=== PATIENT | male | born 1950 | race African-American/Black ===

== ENCOUNTER 2019-12-17 20:52 | Emergency (ER) | payer MEDICARE, MEDICAID ==
[~2019-12-17] VITALS: Ht 175.3 cm; Wt 59.0 kg
[2019-12-17] MEDS ORDERED: IPRATROPIUM BROMIDE (0.02%) 0.5MG/2.5ML NEB HHN STA (21:11)
[2019-12-17] MEDS ORDERED: ALBUTEROL (0.083%) 2.5MG/3ML NEB HHN STA (21:11)
[2019-12-17] MEDS ORDERED: ONDANSETRON HCL 4MG/2ML INJ IV ONE (21:45)
[2019-12-17] MEDS ORDERED: ONDANSETRON 4MG ODT PO ONE (22:00)
[2019-12-17 22:45] VITALS: BP 140/81
== END 2019-12-17 21:00 | disposition left against medical advice (07) ==
LOC: ER 20:52
DX: R06.02 Shortness of breath (principal); J44.9 Chronic obstructive pulmonary disease, unspecified; K74.60 Unspecified cirrhosis of liver; Z88.0 Allergy status to penicillin
CPT/HCPCS: 71045; 93005; 99283; Q0162; 94640